=== PATIENT | male | born 1990 | race Caucasian/White ===

== ENCOUNTER 2020-07-29 14:18 | Emergency (ER) | payer MEDICAID, SELFPAY ==
[2020-07-29 14:25] VITALS: BP 130/78; PULSE 109; RESP 18; TEMP 36.6; O2SAT 99
--- NOTE | 2020-07-29 14:30 | DI.CT_ITS ---
EXAM: CT CHEST/ABD/PEL W CLINICAL HISTORY: right sided pain s/p fall snowboarding TECHNIQUE: Imaging Protocol: Axial computed tomography images with coronal and sagittal reformatted images were created and reviewed CONTRAST MATERIAL: Intravenous: Omnipaque 350 Contrast volume:100 mL Oral: No COMPARISON: No exams were available for comparison FINDINGS: CHEST: Tracheobronchial tree: Patent where visualized. Pulmonary parenchyma: No consolidation or dominant measurable mass. No architectural distortion. Visualized thyroid gland: Unremarkable. Mediastinum and Lisa: There is soft tissue seen in the anterior mediastinum measuring 2.1 x 2.0 cm. While this may represent normal thymic tissue, the possibility of a thymoma or neoplasm such as lymph isabela cannot be excluded. Follow-up as clinically appropriate. Pleura: No effusion or pneumothorax. Heart: The heart is not dilated. No coronary artery calcifications are seen. No pericardial effusion. Aorta: Thoracic aorta non-dilated. Lymph nodes: Within normal limits. Soft tissues: Unremarkable. Bones:Normal. ABDOMEN: Liver: Normal density. No measurable mass. No evidence of a hepatic laceration. Portal, Superior Mesenteric, and Splenic Veins: Unremarkable. Gallbladder and Biliary Tract: No radiodense calculus or dilation. Pancreas: Normal density, no abnormal calcifications or inflammatory process. Spleen: Normal. Adrenals: No masses seen. Kidneys: Normal size, contour and axis. No radiodense stones or obstructive uropathy. No masses seen. Abdominal Aorta: Abdominal portion non-dilated. Bowel: No evidence of bowel obstruction. There is mild bowel wall thickening in proximal small bowel loops in the left upper quadrant. The descending colon is not distended. There is apparent thicken ing of the wall of the descending colon. This may reflect underdistention, colitis may also be consi dered please correlate clinically. Appendix is unremarkable. Peritoneal Cavity: No ascites, collection or mesenteric inflammatory response. No free air. Lymph Nodes: Within normal limits. Bones: There is L5 spondylolysis but no evidence of spondylolisthesis. No acute fracture or subluxat ion. Soft Tissues: Unremarkable. PELVIS: Bladder: Symmetric distention, no gross wall thickening. Reproductive Organs: Unremarkable as visualized. Lymph Nodes: Within normal limits. Bones: Please see the above discussion. IMPRESSION: 1. No evidence of acute abdominal or pelvic organ injury or fracture. 2. Mild bowel wall thickening seen in the proximal jejunum which may represent a mild enteritis. 3. Underdistention versus nonspecific colitis in the descending colon. 4. No acute thoracic injury or fracture. 5. Soft tissue in the anterior mediastinum. While this may represent residual thymic tissue, the pos sibility of a thymoma or neoplasm such as lymphoma cannot be excluded. Please correlate clinically. RADIATION DOSE DELIVERED: 1,262.33mGy.cm Total DLP DATA REPOSITORY: All CT scans at this facility are submitted to the National Radiology Data Registry (NRDR) Dose Index Registry (DIR) with the [employer] (A[employer]). RADIATION OPTIMIZATION: All CT scans at this facility use at least one of these dose optimization te chniques: automated exposure control; mA and/or kV adjustment per patient size (includes targeted exa ms where dose is matched to clinical indication); or iterative reconstruction.
--- NOTE | 2020-07-29 14:35 | ED.GENADUL_ITS ---
Discharge Plan Disposition Patient Disposition: HOME Condition: Stable Discharge Details Clinical Impression: Blunt trauma of multiple sites of trunk Primary Care Provider: Tristian Campbell III ED Provider: Brandin Bowers Home Meds and New Rx's Prescriptions: Continued guanfacine 3 mg Tablet Extended Release 24 Hr 3 mg PO DAILY RF: 0 Discharge Instructions Instructions: Rib Contusion (ED) Additional Instructions: Follow up with your primary care provider and discuss findings on the cat scan, you may need additional imaging or a biopsy in the future if you have pain you can take 1000mg tylenol and 600mg ibuprofen every 6 hours for pain as needed and also use over the counter lidocaine patches if you have severe worsening pain, difficulty breathing or feel more ill return to the emergency department Medical Decision Making 29 yo male with no chronic medical problems who is from [facility] and visiting a friend was at [facility] when he went on a rail slipped and landed on his right lower chest/abdomen. Denies hitting head or loc and was wearing a helmet at the time. He is localizing the pain in the right mid axillary line over the 9-11ribs and has no crepitus, and has tenderness over the ruq and oblique muscle. no neck tenderness or midline T/L spine tenderness, walking without a limp and no signs of trauma to the head, clear speech, gcs 15. Suspect contusion of rib and abdomen wall but given degree of pain concern for possible fracture of the rib, ptx, and also intrabdominal injuries such as liver laceration, will obtain ct chest/abd/pelvis to further evaluate. Has no signs of head trauma or midline c spine pain and can fully range the c spine so do not feel imaging of c spine or head indicated at this time labs show wbc of 16 which could be reactive from the trauma and pain, ct shows no acute findings, has what appears to be thymoma vs possible lymphoma, no findings on ct to suggest hematoma and no pericardial effusion. He has suggestion of mild enteritis on ct of the abdomen but no diarrhea or n/v so likely incidental finding and only has mild chest tenderness no guarding or rebound on abdominal exam. He feels well enough for d/c and understands need for follow up with pcp for ct chest findings and return precautions given. Differential Diagnosis Differential Diagnosis: liver injury, rib fracture, ptx Imaging Data Radiologic Study: Attestation: I personally reviewed and interpreted this imaging study as follows: Imaging: CT Scan Radiologist's impression: PROCEDURE INFORMATION: Exam: CT Chest With Contrast; Diagnostic Exam date and time: 07/29/2020 3:02 PM Age: 29 years old Clinical indication: Injury or trauma; Fall; Sprain or strain TECHNIQUE: Imaging protocol: Diagnostic computed tomography of the chest with contrast. Contrast material: OMNIPAQUE 350; Contrast volume: 100 ml; Contrast route: INTRAVENOUS (IV); COMPARISON: No relevant prior studies available. FINDINGS: Lungs: Unremarkable. No consolidation. No masses. Pleural spaces: Unremarkable. No pneumothorax. No pleural effusion. Heart: Unremarkable. No cardiomegaly. No pericardial effusion. Mediastinal space: There is soft tissue density seen in the anterior mediastinum greater than expected for residual thymic tissue. It measures up to 1.7 x 1.7 cm. Aorta: Unremarkable. No aortic aneurysm. Lymph nodes: Unremarkable. No enlarged lymph nodes. Bones/joints: Unremarkable. No acute fracture. Soft tissues: Unremarkable. IMPRESSION: 1. No evidence for acute posttraumatic abnormality. 2. Soft tissue attenuation anterior mediastinum. Consider thymoma or possible lymphoma. Appearance not typical for hematoma. JERROD BISHOP Preliminary Radiology Report PROGRAM PROJECT ANALYST (QA) DISCREPANCY? If there is a discrepancy between the preliminary and final interpretation, please notify [email or web address] via [email or web address]. If you do not have access to our QA portal, call our QA team at [phone] CONFIDENTIALITY STATEMENT This report is intended only for the use of the referring physician, and only in accordance with law, If you received this in error, call [phone] Page 2 of 2 PROCEDURE INFORMATION: Exam: CT Abdomen And Pelvis With Contrast Exam date and time: 07/29/2020 3:02 PM Age: 29 years old Clinical indication: Injury or trauma; Fall; Sprain or strain TECHNIQUE: Imaging protocol: Computed tomography of the abdomen and pelvis with contrast. Contrast material: OMNIPAQUE 350; Contrast volume: 100 ml; Contrast route: INTRAVENOUS (IV); COMPARISON: No relevant prior studies available. FINDINGS: Liver: Normal. No mass. Gallbladder and bile ducts: Normal. No calcified stones. No ductal dilation. Pancreas: Normal. No ductal dilation. Spleen: Normal. No splenomegaly. Adrenal glands: Normal. No mass. Kidneys and ureters: Normal. No hydronephrosis. Stomach and bowel: There may be some mild wall thickening involving proximal jejunal bowel loops and the descending colon. Appendix: No evidence of appendicitis. Intraperitoneal space: Unremarkable. No free air. No significant fluid collection. Vasculature: Unremarkable. No abdominal aortic aneurysm. Lymph nodes: Unremarkable. No enlarged lymph nodes. Urinary bladder: Unremarkable as visualized. Reproductive: Unremarkable as visualized. Bones/joints: Bilateral spondylolysis L5-S1 without spondylolisthesis. No acute fracture. Soft tissues: Unremarkable. IMPRESSION: 1. No evidence for acute posttraumatic abnormality. 2. Consider mild enteritis and colitis. Lab Data Lab results reviewed: Yes I reviewed the patient's lab results. HPI General Mode of arrival: ambulatory . Date/Time Provider Initiated Documentation: 07/29/20 14:20 . Limitations to Documentation: no limitations . Information obtained by: patient . History of Present Illness 29 year old M presents to the emergency department with the chief complaint of right sided chest/abd pain, described as moderate and severe, Quality is described as stabbing and aching, and is localized to the chest and abdomen. Patient reports no radiation. Patient started experiencing this hour(s) (1) and it has been constant. No relieving factors improve symptom(s), No exacerbating factors reported . Patient notes no other symptoms.. Patient did receive the following treatments prior to arrival, none Related Data Home Medications Medication Instructions Recorded Confirmed guanfacine 3 mg PO DAILY 07/29/20 07/29/20 Allergies Allergy/AdvReac Type Severity Reaction Status Date / Time No Known Allergies Allergy Unverified 07/29/20 14:28 General Stated Complaint: Chest/Rib LORETA: 3 Review of Systems All systems reviewed & are unremarkable except as noted in HPI and below Constitutional Constitutional: Denies chills, Denies fever(s) and Denies weakness Cardiovascular Cardiovascular: Denies dyspnea Respiratory Respiratory: Denies cough and Denies dyspnea Gastrointestinal Gastrointestinal: Denies nausea and Denies vomiting Musculoskeletal Musculoskeletal: Denies joint swelling Neurologic Neurologic: Denies weakness PFSH Social History Smoking/Tobacco Use Status: Current every day Tobacco Type: cigarettes Smoking risk assessment performed?: Yes Alcohol Intake: never Drug use: Never Substance use type: does not use Do you feel safe at home: Yes Do you feel safe in your relationship?: Yes Exam Const General: no acute distress Orientation: alert HENMT Head: normal to inspection Ears: external ears normal General nose exam: external nose normal Mouth: moist mucous membranes Eyes General: appearance normal, both eyes and all related structures Neck Neck: normal visual inspection Chest Chest: tenderness Resp Effort & Inspection: normal respiratory effort and able to speak in complete sentences Cardio Rate: regular rate GI Palpation: no guarding and tender Skin General skin exam: no rashes or lesions noted Neuro General: patient alert and patient oriented x3 Extrem General: normal to inspection Psych Mental Status: mental status grossly normal Course Vital Signs Vital signs: Vital Signs Temperature 36.6 C 07/29/20 14:25 Pulse 109 H 07/29/20 14:25 Respiratory Rate 18 07/29/20 14:25 Blood Pressure 130/78 07/29/20 14:25 Pulse Oximetry 99 07/29/20 14:25 Temperature 36.6 C 07/29/20 14:25 Temperature Source Temporal Artery Scan 07/29/20 14:25 Pulse 109 H 07/29/20 14:25 Respiratory Rate 18 07/29/20 14:25 Blood Pressure 130/78 07/29/20 14:25 Blood Pressure Position Sitting 07/29/20 14:25 Pulse Oximetry 99 07/29/20 14:25 Oxygen Delivery Method Room Air 07/29/20 14:25 Oxygen Flow Rate 0 07/29/20 14:25 Pain Level 7 07/29/20 14:25
[2020-07-29] MEDS: Normal Saline 1,000 ML 1000 ML IV (14:49)
[2020-07-29 14:57] LABS: Abs Immature Grans 0.12 10^3/uL (0.0-0.06); Absolute Eosinophil Count 0.15 10^3/uL (0.0-0.7); Basophils % 0.5; Eosinophils % 0.9; HCT 43.5 % (40.0-50.0); HGB 14.9 g/dL (13.5-17.5); Immature Grans % 0.7; MCH 30.3 pg (27.0-33.0); MCHC 34.3 % (32.0-36.0); MCV 88.6 fL (80-95); Monocytes % 6.5; Neutrophils % 77.4; Nucleated RBC 0 %; Platelet Count 423 10^3/uL (130-400); RBC 4.91 10^6/uL (4.36-5.78); RDW 13.8 % (11.8-14.1); RDW-SD 44.7 fL; WBC 16.38 10^3/uL (4.4-10.8)
[2020-07-29 14:59] LABS: Absolute Basophil Count 0.08 10^3/uL (0.0-0.2); Absolute Lymphocyte Count 2.29 10^3/uL (1.2-3.4); Absolute Monocyte Count 1.06 10^3/uL (0.1-0.8); Absolute Neutrophil Count 12.68 10^3/uL (1.2-6.7)
[2020-07-29 15:10] LABS: ALT 50 U/L (16-63); AST 30 U/L (15-37); Albumin 4.3 g/dL (3.4-5.0); Alkaline Phosphatase 95 U/L (46-116); Anion Gap 9.6 mmol/L (3-11); BUN 22 mg/dL (7-18); Bilirubin, Total 0.4 mg/dL (0.2-1.0); CO2 27.4 mmol/L (21.0-32.0); CREATININE 1.1 mg/dL (0.70-1.30); Chloride 102 mmol/L (98-107); Glucose 107 mg/dL (74-106); Sodium 139 mmol/L (136-145); Total Protein 7.9 g/dL (6.4-8.2)
[2020-07-29] MEDS: Normal Saline Flush 10 ML SYR IVP (15:12)
[2020-07-29] MEDS: Omnipaque 350 MG/ML 100 ML BTL IJ (15:12)
[2020-07-29] MEDS: Normal Saline - Diluent 50 ML VIAL IV (15:13)
[2020-07-29 15:20] LABS: ETHANOL BLOOD < 3.0 mg/dL (<3)
[2020-07-29 15:23] VITALS: BP 100/67; PULSE 94; RESP 12; O2SAT 98
--- NOTE | 2020-07-29 15:25 | DI.VRAD_ITS ---
PROCEDURE INFORMATION: Exam: CT Chest With Contrast; Diagnostic Exam date and time: 07/29/2020 3:02 PM Age: 29 years old Clinical indication: Injury or trauma; Fall; Sprain or strain TECHNIQUE: Imaging protocol: Diagnostic computed tomography of the chest with contrast. Contrast material: OMNIPAQUE 350; Contrast volume: 100 ml; Contrast route: INTRAVENOUS (IV); COMPARISON: No relevant prior studies available. FINDINGS: Lungs: Unremarkable. No consolidation. No masses. Pleural spaces: Unremarkable. No pneumothorax. No pleural effusion. Heart: Unremarkable. No cardiomegaly. No pericardial effusion. Mediastinal space: There is soft tissue density seen in the anterior mediastinum greater than expected for residual thymic tissue. It measures up to 1.7 x 1.7 cm. Aorta: Unremarkable. No aortic aneurysm. Lymph nodes: Unremarkable. No enlarged lymph nodes. Bones/joints: Unremarkable. No acute fracture. Soft tissues: Unremarkable. IMPRESSION: 1. No evidence for acute posttraumatic abnormality. 2. Soft tissue attenuation anterior mediastinum. Consider thymoma or possible lymphoma. Appearance not typical for hematoma. PROCEDURE INFORMATION: Exam: CT Abdomen And Pelvis With Contrast Exam date and time: 07/29/2020 3:02 PM Age: 29 years old Clinical indication: Injury or trauma; Fall; Sprain or strain TECHNIQUE: Imaging protocol: Computed tomography of the abdomen and pelvis with contrast. Contrast material: OMNIPAQUE 350; Contrast volume: 100 ml; Contrast route: INTRAVENOUS (IV); COMPARISON: No relevant prior studies available. FINDINGS: Liver: Normal. No mass. Gallbladder and bile ducts: Normal. No calcified stones. No ductal dilation. Pancreas: Normal. No ductal dilation. Spleen: Normal. No splenomegaly. Adrenal glands: Normal. No mass. Kidneys and ureters: Normal. No hydronephrosis. Stomach and bowel: There may be some mild wall thickening involving proximal jejunal bowel loops and the descending colon. Appendix: No evidence of appendicitis. Intraperitoneal space: Unremarkable. No free air. No significant fluid collection. Vasculature: Unremarkable. No abdominal aortic aneurysm. Lymph nodes: Unremarkable. No enlarged lymph nodes. Urinary bladder: Unremarkable as visualized. Reproductive: Unremarkable as visualized. Bones/joints: Bilateral spondylolysis L5-S1 without spondylolisthesis. No acute fracture. Soft tissues: Unremarkable. IMPRESSION: 1. No evidence for acute posttraumatic abnormality. 2. Consider mild enteritis and colitis. Dictated and Authenticated by: Salma Dejesus MD. Ordering:SONAL Ghotra MD
[2020-07-29 15:35] VITALS: BP 103/63
== END 2020-07-29 16:49 | disposition home or self-care (01) ==
PROVIDERS: Emergency Provider Emergency Medicine; PCP Student in an Organized Health Care Education/Training Program
DX: R07.81 Pleurodynia (principal); R10.811 Right upper quadrant abdominal tenderness; V00.318A Other snowboard accident, initial encounter; Y93.23 Activity, snow (alpine) (downhill) skiing, snowboarding, sledding, tobogganing and snow tubing
CPT/HCPCS: 74177; 80053; 86850; 86900; 86901; 96361; 96374; 99285; 71260; 80320; 85025; 99284; J3490